=== PATIENT | male | born 1985 | race Caucasian/White ===

== ENCOUNTER → 2017-11-09 15:18 | Outpatient (POV) | payer OTHER, SELFPAY | PROVIDERS: Visit Provider Dermatology | DX: Z00.00 Encounter for general adult medical examination without abnormal findings (principal) ==

== ENCOUNTER 2020-06-08 09:04 | Emergency (ER) | payer OTHER, SELFPAY ==
--- NOTE | 2020-06-08 08:50 | XR_ITS ---
Exam: Lumbar spine five views. Indication: Low back pain Comparison: 12/01/2018 Findings: There is mild wedging of T12 anteriorly and minimal wedging of L1 which is unchanged. Degenerative disc disease is present at T11-T12 T12-L1, L2-L3, and L3-L4. Small posterior osteophyte noted along the inferior endplate of L3 and the inferior endplate of L4. There is normal alignment. No acute fracture or dislocation is evident. Impression: Degenerative changes of the lumbar spine and lower thoracic spine as described above. Dictated by: Stefano Carmen MD 09/14/2020 09:05 Stefano Carmen MD in [place] 09/14/2020 09:05
[2020-06-08 09:21] VITALS: BP 154/112; PULSE 118; RESP 14; TEMP 36.6; O2SAT 100; BMI 36.5
--- NOTE | 2020-06-08 09:25 | HMH.EDUTC ---
[facility] [place] Condition on Discharge: Fair <SmitaLincoln - Last Filed: 06/08/20 12:22> Condition on Discharge: Fair <Hiram Mancilla - Last Filed: 06/08/20 17:00> Clinical Impression: Lumbar degenerative disc disease, Protruded lumbar disc, Sciatica associated with disorder of lumbar spine Disposition: Home, Self-Care Instructions: DI for Sciatica Prescriptions: Ibuprofen [Ibuprofen 800mg Tablet] 800 mg PO TIDP PRN #20 tab PRN Reason: Moderate Pain Transmission Status: Received by Clinic [facility] Context Relevant methocarbamoL [Robaxin 750mg Tab] 1,500 mg PO TID 7 Days #42 tab Transmission Status: Received by Clinic Pharm[facility] Context Relevant Referrals: Perfecto Gupta MD [Primary Care Provider] - Yoel Ortiz [Referring] - Forms: Work/School Release Medical Decision Making - Medical Records Medical records reviewed: Yes: I reviewed the patient's medical records. - Michael Inquiry Pt receiving controlled substance: No - CT Data CT Scan: L-Spine Time Received: 12:[address] Reviewed: Yes: I have reviewed the patient's CT results, I have viewed the radiologist's interpretation - US Data US Images: Lower Extremity ED US Reviewed: Yes: I have reviewed the patient's US results, I discussed the US results w/the radiologist Preliminary Findings: Normal/NAD - Reevaluation(s) Time: 12:26 <SmitaLincoln - Last Filed: 06/08/20 12:22> Vital Signs: 06/08/20 09:21 06/08/20 09:44 06/08/20 10:01 Temperature 97.9 F 98.1 F Temperature Source Oral Oral Pulse Rate Pulse Rate [Right] 118 H 119 H 104 H Respiratory Rate 14 18 20 Blood Pressure Blood Pressure [Right Arm] 154/112 H 153/87 H 138/96 H Blood Pressure Mean [Right Arm] 126 109 110 Blood Pressure Source [Right Arm] Automatic Cuff Automatic Cuff Blood Pressure Position [Right Arm] Sitting 02 Sat by Pulse Oximetry 100 98 97 Oxygen Delivery Method Room Air 06/08/20 12:03 06/08/20 12:38 Temperature 98.3 F Temperature Source Oral Pulse Rate 87 Pulse Rate [Right] 78 Respiratory Rate 18 18 Blood Pressure 149/81 H Blood Pressure [Right Arm] 142/83 H Blood Pressure Mean [Right Arm] 102 Blood Pressure Source [Right Arm] Automatic Cuff Blood Pressure Position [Right Arm] Sitting 02 Sat by Pulse Oximetry 98 Oxygen Delivery Method Orders (Tests/Meds): ORDERS Category Date Time Status CT lumbar spine wo con Stat Cat Scan 06/08/20 09:57 Taken - CT Data Findings Narrative: FINDINGS: There is normal alignment. No fracture or dislocation is evident. T11-T12: Degenerative disc disease with small endplate osteophytes and osteophytes of the lamina on both sides with mild bilateral lateral recess narrowing. T12-L1: Mild chronic wedging of T12 with loss of height anteriorly of 30 percent. Degenerative disc disease T12-L1: L1-L2: Mild degenerative disc disease. L2-L3: Mild degenerative disc disease. L3-L4: Degenerative disc disease with a small broad-based central disc osteophyte complex along with ligamentum hypertrophy with resultant bilateral lateral recess narrowing and mild bilateral foraminal narrowing. L4-5: Mild degenerative disc disease with prominent broad based partially calcified bulging disc along with facet and ligamentum hypertrophy resulting in bilateral lateral recess narrowing and borderline narrowing of the canal. There is associated soft small broad-based right paracentral disc protrusion. L5-S1: Prominent bulging disc which is eccentric toward the left with associated mild facet hypertrophic change. The bulging disc does abut the anterior aspect of the left S1 nerve root. There is moderate to severe left-sided foraminal narrowing. 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 Incidental note is made of 1.4 cm lipoma within the left piriformis muscle. IMPRESSION: Abnormal CT of the lumbar spine wit
[2020-06-08 09:44] VITALS: BP 153/87; PULSE 119; RESP 18; TEMP 36.7; O2SAT 98; BMI 35.9
--- NOTE | 2020-06-08 09:57 | CT_ITS ---
Dictated by: Stefano Carmen MD 06/08/2020 20:29 Stefano Carmen MD in [place] 06/09/2020 09:46
--- NOTE | 2020-06-08 09:57 | CA_ITS ---
APPROVED REPORT Left Lower Extremity Venous Study for DVT. Tech Brazer Tester: Rose Alvarez RVT Indications Lower Extremity Pain: Left pain, swelling,lt foot numbness Risk Factors History of Smoking Vein Imaging CFV (L): compressive, spontaneous, phasic, augmentation FEM (L): compressive, spontaneous, phasic, augmentation POP (L): compressive, spontaneous, phasic, augmentation PTV (L): Compressible GSV (L): Compressible Peroneals (L):Compressible GAS (L): Compressible Findings Study suggests no evidence of DVT of the left lower extremity. Study suggests no evidence of SVT of the left lower extremity. Conclusion Study suggests no evidence of DVT of the left lower extremity. Study suggests no evidence of SVT of the left lower extremity. Critical Notification Physician Notified Date: 06/08/2020 Time: 10:44 Physician Name: Dr. Ordoñez Electronically signed by : Stefano Carmen MD 06/08/2020 15:30:23
[2020-06-08 10:01] VITALS: BP 138/96; PULSE 104; RESP 20; O2SAT 97
--- NOTE | 2020-06-08 10:23 | PC.NURSE ---
PT GETTING A DOPPLER NOW AT BEDSIDE
--- NOTE | 2020-06-08 11:48 | CT_ITS ---
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 All CT scans at the facility use one or more dose reduction, viz: automated exposure control, ma/kV adjustment per patient size (including targeted exams where dose is matched to indication, i.e. head), or iterative reconstruction technique. FINDINGS: There is normal alignment. No fracture or dislocation is evident. T11-T12: Degenerative disc disease with small endplate osteophytes and osteophytes of the lamina on both sides with mild bilateral lateral recess narrowing. T12-L1: Mild chronic wedging of T12 with loss of height anteriorly of 30 percent. Degenerative disc disease T12-L1: L1-L2: Mild degenerative disc disease. L2-L3: Mild degenerative disc disease. L3-L4: Degenerative disc disease with a small broad-based central disc osteophyte complex along with ligamentum hypertrophy with resultant bilateral lateral recess narrowing and mild bilateral foraminal narrowing. L4-5: Mild degenerative disc disease with prominent broad based partially calcified bulging disc along with facet and ligamentum hypertrophy resulting in bilateral lateral recess narrowing and borderline narrowing of the canal. There is associated soft small broad-based right paracentral disc protrusion. L5-S1: Prominent bulging disc which is eccentric toward the left with associated mild facet hypertrophic change. The bulging disc does abut the anterior aspect of the left S1 nerve root. There is moderate to severe left-sided foraminal narrowing. 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 Incidental note is made of 1.4 cm lipoma within the left piriformis muscle. IMPRESSION: Abnormal CT of the lumbar spine with multilevel lumbar spondylosis. Please see above for detailed description at each level. Dictated by: Stefano Carmen MD 06/08/2020 12:15 Stefano Carmen MD in [place] 06/08/2020 12:15
--- NOTE | 2020-06-08 11:48 | PC.NURSE ---
Per radiology staff pt previously xrays of lumbar spine during this visit when CT scan was ordered. Rad staff states they need another or for CT scan so they can process it on their list and do the CT. ER MD is aware. pt to CT at this time.
[2020-06-08 12:03] VITALS: BP 142/83; PULSE 78; RESP 18; O2SAT 98
[2020-06-08 12:38] VITALS: BP 149/81; PULSE 87; RESP 18; TEMP 36.8; O2SAT 98
== END 2020-06-08 12:37 | disposition home or self-care (01) ==
LOC: UTC 09:08 → ER 09:36
PROVIDERS: Emergency Provider Nurse Practitioner Family; PCP Family Medicine
DX: M54.16 Radiculopathy, lumbar region (principal); R20.2 Paresthesia of skin; I10 Essential (primary) hypertension; Z88.1 Allergy status to other antibiotic agents; Z87.891 Personal history of nicotine dependence; Z79.899 Other long term (current) drug therapy
CPT/HCPCS: 72131; 93971; 99282

== ENCOUNTER 2020-07-03 16:30 | Outpatient (RCR) | payer OTHER, SELFPAY ==
--- NOTE | 2020-06-17 15:00 | HMH.PTOPEV ---
PT Outpatient Evaluation Rehab PT Outpatient Evaluation Start: 06/17/20 14:04 Freq: Status: Active Protocol: Document 06/17/20 14:51 VERA (Rec: 06/17/20 15:00 PHOJIGAR [id number]) Electronically Signed By Mirza Zapien, PT 06/17/20 14:51 Outpatient Therapy Subjective History Subjective History Pt is 34 yowm who presents with c/o pain, numbness, and weakness in the L lower leg x ~ 2 wks. 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 Mild pain is also reported in the L post hip. No pain or discomfort in the low back and he has hx of this previously. He states, This just feel a lot different than when I have hurt my back before. Lumbar CT shows L3-S1 DDD with disc bulges. Chief Complaint Pain,Paresthesia,Weakness Symptom Type Ache,Sharp,Numbness,Tingling Symptoms Relieved By Rest/Positioning Symptoms Aggravated By Standing,Walking Prior Functional Limitations None Current Functional Limitations Driving,Sleeping,Standing, Recreation Activity,Walking Symptom Description Constant but Variable Level of pain today (0-10) 5 Pain scale - at its worst (0-10) 10 Lumbopelvic Eval Palapation tenderness left buttock tenderness Yes Range of Motion Lumbar Spine Active Flexion Range of 0-45 Motion (degrees) Lumbar Spine Active Extension Range of 0-25 Motion (degrees) Left Lumbar Spine Lateral Flexion Active 0-20 Range of Motion (degrees) Right Lumbar Spine Lateral Flexion 0-20 Active Range of Motion (degrees) Manual Muscle Test Left Knee Extension Strength Grade 4 Good Ankle Dorsiflexion Strength Grade 4 Good Altered Sensation LE Dermatome Level L5 Special Tests Forward Bending Test- Standing Negative Left,Negative Right Hip Scouring (Quadrant) Test Negative Left,Negative Right Hip Jass (LARRY) Test Negative Left,Negative Right Hip Piriformis Test Negative Right,Positive Left Sciatic Nerve Tension Test Negative Right,Positive Left Unilateral Straight Leg Raise (Lasegue) Negative Left,Negative Right Test Lumbar Long Gardner Distraction Test/Manual Negative Traction Outpatient Therapy Assessment Impairments Problems/Impairmments
== END 2020-07-03 16:35 | disposition home or self-care (01) ==
LOC: PT 16:30
PROVIDERS: PCP Family Medicine; Visit Provider Family Medicine
DX: M47.16 Other spondylosis with myelopathy, lumbar region (principal); M51.36 Other intervertebral disc degeneration, lumbar region
CPT/HCPCS: 97010; 97012; 97014; 97110; 97163; G0283

== ENCOUNTER → 2020-10-16 11:51 | Outpatient (CLI) | payer OTHER, SELFPAY ==
[2020-10-16 12:01] VITALS: BMI 24.3
== END ==
PROVIDERS: PCP Family Medicine; Visit Provider Nurse Practitioner
DX: M54.5 Low back pain (principal)

== ENCOUNTER → 2021-10-22 07:54 | Outpatient (POV) | payer OTHER, SELFPAY ==
[2021-10-22 08:24] VITALS: BP 147/98; PULSE 103; RESP 18; TEMP 36.9; O2SAT 100; BMI 36.6
--- NOTE | 2021-10-22 12:23 | HMH.PMCON ---
Assessment and Plan (1) Lumbar back pain Status: Acute Category: Medical Code(s): M54.50 - Low back pain, unspecified - Assessment and plan all Dx Assessment and Plan for all problems:: This patient is a very pleasant 36-year-old male that comes our clinic today for initial consultation regarding intermittent lumbar back pain. Patient states he has 2-3 episodes a year of sharp stabbing back pain that causes him to be down for 3 to 5 days. 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 He denies radicular pain when he does have an episode. However, today he is doing very well. He does not have pain. He does take naproxen as needed. Also, he does take Flexeril as needed. However, he states that Flexeril makes him sleepy. He can only take it at night. Patient is interested in being in our system if in fact he does have another episode. His MRI does show degenerative disc L4-5, L5-S1. Disc bulge L4-5, L5-S1. HPI - Data of Consult Consult date: 10/22/21 Requesting Physician: Jass Castro CRNA Primary Care Provider: Perfecto Gupta MD - Consult Narrative Reason for consult: Back pain History of present illness: Mr. Santizo is a 36 year old male CC: Jass Castro CRNA [facility] History Medical History: Reports:: Hypertension Denies:: Diabetes Mellitus Type 2 *Have you ever received a pneumonia vaccine?: No *Have you received a flu vaccine this season?: No Other Medical History: Reports: Arthritis Laterality Cases: Bilateral: Tonsillectomy Other Surgeries: Yes: Other Amputation: No Fractures: Yes - *Social History Smoking Status: Former smoker Tobacco Type: cigarettes # Packs/Day (cigarettes): 2 #Yrs smoked (if former smoker): 14 Alcohol Intake: never Alcohol Intake Frequency:: a few times a week Substance Use Type: denies use *Occupational Status:: other *Travel in the last 8 weeks: None Family Hx:: Hypertension, Coronary Artery Disease Meds Home Medications Medication Instructions Recorded Confirmed Type lisinopril 5 mg tablet 10 mg PO DAILY 06/19/17 10/22/21 History Ibuprofen [Ibuprofen 800mg 800 mg PO TIDP PRN #20 tab 06/08/20 10/22/21 Rx Tablet] Cyclobenzaprine HCl 10 mg PO TIDP 10/22/21 10/22/21 History [Cyclobenzaprine 10mg Tab*] Naproxen [Naproxen 500mg tab] 500 mg PO BID 10/22/21 10/22/21 History Oxycodone HCl/Acetaminophen 1 each PO Q6HP PRN 10/22/21 10/22/21 History [Oxycodone-Acetaminophen 5-325] Allergies Allergy/AdvReac Type Severity Reaction Status Date / Time amoxicillin [AMOXICILLIN] Allergy Mild Verified 11/04/20 11:25 Objective Vital signs: Temp Pulse Resp BP Pulse Ox 98.4 F 103 H 18 147/98 H 100 10/22/21 08:24 10/22/21 08:24 10/22/21 08:24 10/22/21 08:24 10/22/21 08:24 Opioid Risk Tool - CAGE-AID Questionaire Do you feel a need to increase medication use?: No Are you annoyed by criticism?: No Do you feel guilty for using substances?: No Do you use substances to calm or relieve a hangover?: No - Opioid Risk Tool-Male Family hx alcohol abuse: N Family hx illegal drugs: N Family hx rx drug abuse: N Personal hx alcohol abuse: N Personal hx illegal drugs: N Personal hx rx drug abuse: N Age: 16-45 Hx of sexual abuse: N Mental health issues-ADD,OCD,Bipolar, etc: N Hx of depression: N Male Risk Score: 1
== END ==
PROVIDERS: PCP Family Medicine; Visit Provider Nurse Anesthetist, Certified Registered
DX: M54.50 Low back pain, unspecified (principal)
CPT/HCPCS: 99202; G0463

== ENCOUNTER 2023-07-16 08:49 | Emergency (ER) | payer OTHER, SELFPAY ==
[2023-07-16 08:58] VITALS: BP 173/82; PULSE 131; RESP 20; TEMP 36.8; O2SAT 98; BMI 38.7
[2023-07-16 09:00] VITALS: BP 118/81; PULSE 126; O2SAT 97
--- NOTE | 2023-07-16 09:20 | ED_ITS ---
Discharge Plan Disposition Patient Disposition: Home, Self-Care Prescriptions Prescriptions: No Action lisinopril 5 mg tablet 10 mg PO DAILY ibuprofen 800 MG tablet 800 mg PO TIDP PRN (Reason: Moderate Pain) Qty: 20 0RF cyclobenzaprine 10 MG tablet 10 mg PO TIDP oxycodone-acetaminophen 1 EACH tablet 1 each PO Q6HP PRN (Reason: pain) naproxen 500 MG tablet 500 mg PO BID Referrals Follow up/Referrals: Ronen Shirley MD [Staff Physician] - See instructions Crow Mac MD [Primary Care Provider] - See instructions Activity Restrictions/Add. Instructions Additional Instructions/Restrictions: I would recommend that you follow-up with your primary care doctor to get a MRI of your thoracic and lumbar spine given the chronicity of your symptoms. Your symptoms today are consistent with sciatica and I also recommend that you take that MRI and those images to a spine surgeon. I recommended Dr. Laurent Ma, an orthopedic spine surgeon at [facility]. Please call make an appointment. Lastly if your chronic pain persist I recommend you follow-up with Dr. Shirley regarding management of that pain. Return with the symptoms that we discussed which include urine and bowel incontinence paralysis of your leg numbness between your legs high fevers or other concerns. Clinical Impressions Clinical Impression: Acute left-sided back pain with sciatica Instructions Patient Instructions: DI for Low Back Pain Discharge ED Provider: Ani Ibarra General Adult HPI General Chief complaint: Back Pain/Injury Stated complaint: left leg pain, no accident Time Seen by Provider: 07/16/23 09:10 Mode of Arrival: Ambulatory Source of Information: Patient Limitations: No Limitations Description of Symptoms (Recalled from ER Triage Doc. by RN): pt to ed c/o left sided back pain that radiates down his left leg. pt states the pain is sharp in nature and feels like a lucas pain. pt states he is unable to bear weight. pt denies any injury or accident. pt states the pain started this morning suddenly. History of Present Illness HPI narrative: Patient is a 37-year-old male with a history of chronic back pain evaluated many years ago by Dr. Ortiz with neurosurgery in [facility] diagnosed with L5- S1 herniated disks and sciatica presents today with worsening of his pain. States that it is radiating down the left aspect of his leg worse with any type of extension of the hip and flexion of the hip. Denies any urinary or bowel incontinence urinary retention saddle anesthesia motor weakness history of fever injection drug use or cancer. Related Data Home Medications Medication Instructions Recorded Confirmed lisinopril 5 mg tablet 10 mg PO DAILY Hypertension 06/19/17 10/22/21 cyclobenzaprine 10 mg tablet 10 mg PO TIDP . 10/22/21 10/22/21 naproxen 500 mg tablet 500 mg PO BID Pain 10/22/21 10/22/21 oxycodone-acetaminophen 5 mg-325 1 each PO Q6HP PRN pain 10/22/21 10/22/21 mg tablet Previous Rx's Medication Instructions Recorded ibuprofen 800 mg tablet 800 mg PO TIDP PRN Moderate Pain 06/08/20 #20 tabs Allergies Allergy/AdvReac Type Severity Reaction Status Date / Time amoxicillin [AMOXICILLIN] Allergy Mild Verified 11/04/20 11:25 [facility] Disclaimer: The information contained in this section may have been updated after the patient was seen, as this information can be updated by other users. Social History Smoking Status: Never smoker alcohol intake: never substance use type: denies use current occupational status: other Travel in the last 8 weeks: None ROS Obtained: Yes All systems reviewed & no additional complaints except as documented Physical Exam General General appearance: alert and in no apparent distress Respiratory Respiratory exam: Present normal lung sounds bilaterally Cardiovascular Cardiovascular exam: Present regular rate and normal rhythm Back Exam Back exam: Present straight leg raise (L) and other (Normal neurovascular motor exam distally); Absent tenderness (No midline pain) Neurological Exam Neurological exam: Present alert and oriented X3 Medical Decision Making Michael Inquiry Pt receiving controlled substance: No Vital Signs: 07/16/23 08:58 07/16/23 09:00 Temperature 98.3 F Temperature Source Oral Pulse Rate 126 H Pulse Rate [Left Radial] 131 H Respiratory Rate 20 Blood Pressure 118/81 Blood Pressure [Right Arm] 173/82 H Blood Pressure Mean [Right Arm] 112 02 Sat by Pulse Oximetry 98 97 Oxygen Delivery Method Room Air Orders (Tests/Meds): ED MEDICATIONS Discontinued Medications Generic Name Dose Route Start Last Admin Trade Name Freq PRN Reason Stop Dose Admin Dexamethasone Sodium Phosphate 10 mg 07/16/23 09:16 07/16/23 09:28 Dexamethasone 4mg/Ml 1ml Vial IV 07/16/23 09:17 10 mg ONCE ONE Administration Diazepam 5 mg 07/16/23 09:16 07/16/23 09:28 Diazepam 10mg/2ml Syringe IV 07/16/23 09:17 5 mg ONCE ONE Administration Ketorolac Tromethamine 15 mg 07/16/23 09:16 07/16/23 09:28 Ketorolac 30mg/Ml Vial IV 07/16/23 09:17 15 mg ONCE ONE Administration Lidocaine 1 each 07/16/23 09:16 07/16/23 09:28 Lidocaine 5% Transdermal Patch TP 07/16/23 09:17 1 each ONCE ONE Administration Medical Decision Narrative: 37-year-old male presenting today with significant worsening of his chronic sciatic pain. Does not have any red flags for any type of central or significant neurovascular compromise such as cauda equina syndrome. He is having significant spasming and having difficult time relaxing his leg in the middle of the spasms. For this reason we will give IV Valium in addition to Toradol dexamethasone and lidocaine patch. I will reassess shortly. Reassessment 11 AM patient feeling much better serial neurologic exams are normal. I discussed with him given the chronicity of his symptoms to follow-up with his primary care doctor to get an outpatient thoracic and lumbar spine MRI. To then take those images to a spine surgeon for further evaluation and management. I recommended Dr. Laurent Ma with [facility] orthopedic spine surgery. Also I gave him a referral to Dr. Shirley our pain specialist if his chronic pain needs further management. He will continue take his anti-inflammatory medications and muscle laxer's at home. He was discharged in improved stable condition. Critical Care Critical Care Time Critical Care Time: No
[2023-07-16] MEDS: diazePAM 10MG/2ML SYRINGE 5 MG IV (09:28)
[2023-07-16] MEDS: DEXAMETHASONE 4MG/ML 1ML VIAL 10 MG IV (09:28)
[2023-07-16] MEDS: LIDOCAINE 5% TRANSDERMAL PATCH 1 EACH TP (09:28)
[2023-07-16] MEDS: KETOROLAC 30MG/ML VIAL 15 MG IV (09:28)
--- NOTE | 2023-07-16 10:23 | PC.NURSE ---
pt reports much improvement in pain. currently sleeping in room. @ bedside
[2023-07-16] MEDS: ACETAMINOPHEN 500MG TAB 1000 MG PO (11:19)
[2023-07-16 11:27] VITALS: BP 118/86; PULSE 90; RESP 20; TEMP 36.8; O2SAT 97
== END 2023-07-16 11:28 | disposition home or self-care (01) ==
PROVIDERS: Emergency Provider Student in an Organized Health Care Education/Training Program; PCP Family Medicine
DX: M54.42 Lumbago with sciatica, left side (principal); M62.830 Muscle spasm of back
CPT/HCPCS: 96374; 96375; 99284

== ENCOUNTER 2023-07-16 12:00 | Emergency (ER) | payer OTHER, SELFPAY ==
[2023-07-16 12:03] VITALS: BP 123/71; PULSE 107; RESP 20; TEMP 36.8; O2SAT 97; BMI 38.7
--- NOTE | 2023-07-16 12:04 | HMH.EDGENADL ---
Discharge Plan Disposition Patient Disposition: Home, Self-Care Prescriptions Prescriptions: New gabapentin 300 mg capsule 300 mg PO .qhs PRN (Reason: Neuropathic pain) 14 Days Qty: 14 0RF No Action lisinopril 5 mg tablet 10 mg PO DAILY ibuprofen 800 MG tablet 800 mg PO TIDP PRN (Reason: Moderate Pain) Qty: 20 0RF cyclobenzaprine 10 MG tablet 10 mg PO TIDP oxycodone-acetaminophen 1 EACH tablet 1 each PO Q6HP PRN (Reason: pain) naproxen 500 MG tablet 500 mg PO BID Referrals Follow up/Referrals: Crow Mac MD [Primary Care Provider] - See instructions Activity Restrictions/Add. Instructions Additional Instructions/Restrictions: Please see previous discharge instructions. Clinical Impressions Clinical Impression: Sciatica associated with disorder of lumbar spine Instructions Patient Instructions: DI for Low Back Pain Discharge ED Provider: Ani Ibarra General Adult HPI General Chief complaint: Back Pain/Injury Stated complaint: left lower leg pain Time Seen by Provider: 07/16/23 12:03 History of Present Illness HPI narrative: Patient is a 37-year-old male with a recent diagnosis of sciatica please see my previous note he is a bounce back just a few hours ago we will discharge. He has recurrent worsening pain. He was given in the emergency department Toradol Tylenol lidocaine dexamethasone and IV Valium he had improvement was discharged with outpatient follow-up with pain medicine and spine surgery and he returns with worsening pain. Related Data Home Medications Medication Instructions Recorded Confirmed lisinopril 5 mg tablet 10 mg PO DAILY Hypertension 06/19/17 10/22/21 cyclobenzaprine 10 mg tablet 10 mg PO TIDP . 10/22/21 10/22/21 naproxen 500 mg tablet 500 mg PO BID Pain 10/22/21 10/22/21 oxycodone-acetaminophen 5 mg-325 1 each PO Q6HP PRN pain 10/22/21 10/22/21 mg tablet Previous Rx's Medication Instructions Recorded ibuprofen 800 mg tablet 800 mg PO TIDP PRN Moderate Pain 06/08/20 #20 tabs gabapentin 300 mg capsule 300 mg PO .qhs PRN Neuropathic 07/16/23 pain 14 days #14 caps Allergies Allergy/AdvReac Type Severity Reaction Status Date / Time amoxicillin [AMOXICILLIN] Allergy Mild Verified 11/04/20 11:25 PFSH PFSH Disclaimer: The information contained in this section may have been updated after the patient was seen, as this information can be updated by other users. Social History Smoking Status: Never smoker alcohol intake: never substance use type: denies use current occupational status: other Travel in the last 8 weeks: None ROS Obtained: Yes All systems reviewed & no additional complaints except as documented Physical Exam General General appearance: alert Respiratory Respiratory exam: Present normal lung sounds bilaterally Cardiovascular Cardiovascular exam: Present regular rate Extremities Exam Extremities exam: Present other (Normal neurovascular exam patient has significant pain radiating down his left lower leg unchanged) Neurological Exam Neurological exam: Present alert and oriented X3 Medical Decision Making Michael Inquiry Pt receiving controlled substance: No Vital Signs: 07/16/23 12:03 Temperature 98.2 F Temperature Source Oral Pulse Rate [Left Radial] 107 H Respiratory Rate 20 Blood Pressure [Right Arm] 123/71 Blood Pressure Mean [Right Arm] 88 02 Sat by Pulse Oximetry 97 Oxygen Delivery Method Room Air Orders (Tests/Meds): ED MEDICATIONS Discontinued Medications Generic Name Dose Route Start Last Admin Trade Name Angie PRN Reason Stop Dose Admin Morphine Sulfate 4 mg 07/16/23 12:03 Morphine 2mg/Ml Syringe IM 07/16/23 12:04 ONCE ONE Medical Decision Narrative: Please see previous note patient had extensive and aggressive medication for his sciatica pain. I did discuss with him that we would not be prescribing any controlled substances to be discharged with given the fact he is a bounce back I will give him some IM morphine and reassess he is aware that this is going to be short acting would not be curative and he understands the limitations and chronicity but this may pose in front of him. He already has had significant chronic pain associated with this and has been given referral to our pain medicine doctors and has Flexeril and anti-inflammatory medications at home as well. After extensive discussion he was given IM morphine also will give him a few weeks of nightly gabapentin he is aware this may need to be escalated if this is effective. He was discharged in stable condition. Serial exams were unremarkable and he is asymptomatic when lying at rest and majority of pain is with any type of hip flexion or leg raise. Critical Care Critical Care Time Critical Care Time: No
[2023-07-16 12:06] VITALS: BP 123/71; PULSE 102; O2SAT 96
[2023-07-16] MEDS: MORPHINE 2MG/ML SYRINGE 4 MG IM (12:25)
[2023-07-16 12:30] VITALS: BP 110/68; PULSE 103; O2SAT 97
[2023-07-16 12:45] VITALS: BP 110/68; PULSE 82; RESP 16; TEMP 36.8; O2SAT 97
== END 2023-07-16 12:56 | disposition home or self-care (01) ==
PROVIDERS: Emergency Provider Student in an Organized Health Care Education/Training Program; PCP Family Medicine
DX: M53.86 Other specified dorsopathies, lumbar region (principal)
CPT/HCPCS: 96372; 99283

== ENCOUNTER 2023-10-26 17:18 | Emergency (ER) | payer OTHER, SELFPAY ==
[2023-10-26 18:14] VITALS: BP 155/96; PULSE 99; RESP 18; TEMP 36.9; O2SAT 99; BMI 38.0
--- NOTE | 2023-10-26 18:30 | ED_ITS ---
Discharge Plan Disposition Patient Disposition: Home, Self-Care Condition: Good Prescriptions Prescriptions: New azithromycin [Zithromax Z-Jun] 250 mg tablet See Rx Instructions .ROUTE .COMPLEX 5 Days Qty: 6 0RF Rx Instructions: For 250 mg dose pack: take 500 mg today (day 1), then 250 mg for 4 days (days 2-5) cefdinir 300 mg capsule 300 mg PO BID Qty: 20 0RF guaifenesin [Mucinex] 600 mg tablet extended release 12hr 1,200 mg PO BID PRN (Reason: cough) Qty: 20 0RF albuterol sulfate [Proventil HFA] 90 mcg/actuation HFA aerosol inhaler 2 puff inhalation Q6H PRN (Reason: shortness of breath or wheezing) Qty: 8.5 0RF promethazine-DM 6.25-15 mg/5 mL syrup 5 ml PO Q6H PRN (Reason: cough) Qty: 118 0RF prednisone 20 mg tablet 20 mg PO BID 5 Days Qty: 10 0RF No Action lisinopril 5 mg tablet 10 mg PO DAILY ibuprofen 800 MG tablet 800 mg PO TIDP PRN (Reason: Moderate Pain) Qty: 20 0RF cyclobenzaprine 10 MG tablet 10 mg PO TIDP oxycodone-acetaminophen 1 EACH tablet 1 each PO Q6HP PRN (Reason: pain) naproxen 500 MG tablet 500 mg PO BID gabapentin 300 mg capsule 300 mg PO .qhs PRN (Reason: Neuropathic pain) 14 Days Qty: 14 0RF Referrals Follow up/Referrals: Crow Mac MD [Primary Care Provider] - See instructions Activity Restrictions/Add. Instructions Additional Instructions/Restrictions: * Start antibiotic today. Be sure to complete entire prescription even if feeling better * Monitor temp. Tylenol every 4 hours as needed and / or ibuprofen every 6 hours as needed ( As long as your primary care physician has told you that it ok to take both. For fever/aches/pains ER if no less than 101 despite Tylenol or Motrin * Humidifier/vaporizer or hot steamy shower * Inhaler every 4-6 hours as needed like we discussed. If unsure how to use it, ask pharmacist to demonstrate how. Should help open airways and improve cough, wheezing, and shortness of breath * Mucinex during the day for your cough and cough suppressant only at night. Be sure to drink lots of water. Insurance may not cover a prescriptions for mucinex. Might be cheaper to get 400mg tablets and take 2 tablet in the morning, mid-day and evening with lots of water. *Promethazine DM cough syrup will cause drowsiness. Use only at night. No driving, operating machinery or caring for small children after taking it *Start steroid tomorrow. Helps with inflammation therefore, cough and wheezing. Follow directions on the package. Reviewed side effects. Patient reports taking them before. Follow up IMMEDIATELY for new or worsening of symptoms OR no noticeable improvement over the next 48-72 hours. 911 immediately for any life threatening symptoms such as chest pain or difficulty breathing Clinical Impressions Clinical Impression: Strep throat, Bronchitis Instructions Patient Instructions: Acute Bronchitis, Cough, DI for Strep Throat Print Language Print Language: Lithuanian Discharge ED Provider: Patrica Kwon [facility] HPI General Stated complaint: cough,papa Mode of Arrival: Ambulatory Source of Information: Patient Limitations: No Limitations Time Seen by Provider: 10/26/23 18:20 Description of Symptoms (Recalled from Triage Doc. by RN): sore throat,swollen glands HEENT Symptoms (Recalled from RN notes): Yes Resp Symptoms (Recalled from RN notes): Yes Skin Symptoms (Recalled from RN notes): No MS Symptoms (Recalled from RN notes): No Functional Status (Recalled from RN notes): na History of Present Illness Provider Complaint: Patient states that he has been having sore scratchy throat, swollen glands, productive cough, and wheezing at times States that he hasnt felt well in a couple of weeks but has got worse over the last few days so he came in to get checked Related Data Home Medications ?Medication ?Instructions ?Recorded ?Confirmed lisinopril 5 mg tablet 10 mg PO DAILY Hypertension 06/19/17 10/22/21 cyclobenzaprine 10 mg tablet 10 mg PO TIDP . 10/22/21 10/22/21 naproxen 500 mg tablet 500 mg PO BID Pain 10/22/21 10/22/21 oxycodone-acetaminophen 5 mg-325 1 each PO Q6HP PRN pain 10/22/21 10/22/21 mg tablet Previous Rx's ?Medication ?Instructions ?Recorded ibuprofen 800 mg tablet 800 mg PO TIDP PRN Moderate Pain 06/08/20 #20 tabs gabapentin 300 mg capsule 300 mg PO .qhs PRN Neuropathic 07/16/23 pain 14 days #14 caps albuterol sulfate 90 mcg/actuation 2 puff inhalation Q6H PRN 10/26/23 aerosol inhaler (Proventil HFA) shortness of breath or wheezing #8.5 grams azithromycin 250 mg tablet See Rx Instructions PO .COMPLEX 5 10/26/23 (Zithromax Z-Jun) days #6 tabs cefdinir 300 mg capsule 300 mg PO BID #20 caps 10/26/23 guaifenesin 600 mg tablet, 1,200 mg (2 x 600 mg) PO BID PRN 10/26/23 extended release 12 hr (Mucinex) cough #20 tabs prednisone 20 mg tablet 20 mg PO BID 5 days #10 tabs 10/26/23 promethazine-DM 6.25 mg-15 mg/5 mL 5 ml PO Q6H PRN cough #118 mL 10/26/23 oral syrup Allergies Allergy/AdvReac Type Severity Reaction Status Date / Time amoxicillin [AMOXICILLIN] Allergy Mild Verified 11/04/20 11:25 Worker's Comp Is this a Worker's Comp case?: No Is this an [facility] Worker's Comp?: No Is this a [place] Worker's Comp?: No [facility] Disclaimer: The information contained in this section may have been updated after the patient was seen, as this information can be updated by other users. Social History Smoking Status: Never smoker alcohol intake: never substance use type: denies use current occupational status: other Travel in the last 8 weeks: None ROS Obtained: Yes All systems reviewed & no additional complaints except as documented and Yes Systems reviewed as appropriate & no additional complaints except as documented Constitutional Constitutional: Reports system reviewed and no additional complaints, except as documented, Reports as per HPI and Reports headache(s) ENT Ears, Nose, Mouth, and Throat: Reports system reviewed and no additional complaints, except as documented, Reports as per HPI, Reports headache(s), Reports sinus pain, Reports sinus pressure and Reports sore throat Cardiovascular Cardiovascular: Reports system reviewed and no additional complaints, except as documented and Reports as per HPI Respiratory Respiratory: Reports system reviewed and no additional complaints, except as documented, Reports as per HPI, Denies shortness of breath, Reports chest congestion, Reports cough and Reports wheezing (on and off at times) Gastrointestinal Gastrointestingal: Reports system reviewed and no additional complaints, except as documented and as per HPI Neurologic Neurologic: Reports headache(s) Allergic/Immunologic Allergic/Immunologic: Reports wheezing (on and off at times) Physical Exam General General appearance: alert and in no apparent distress Expanded ENT Exam Nose exam: Present sinus tenderness Throat exam: Present tonsillar erythema and other (PND noted) Respiratory Respiratory exam: Present normal lung sounds bilaterally, wheezes and other (mildly decreased lower lobes); Absent respiratory distress Cardiovascular Cardiovascular exam: Present regular rate, normal rhythm and normal heart sounds Neurological Exam Neurological exam: Present alert, oriented X3 and normal gait Medical Decision Making Michael Inquiry Pt receiving controlled substance: No Michael was queried for this patient: No Vital Signs: 10/26/23 18:14 Temperature 98.5 F Temperature Source Oral Pulse Rate [Left] 99 H Respiratory Rate 18 Blood Pressure [Left Arm] 155/96 H Blood Pressure Mean [Left Arm] 115 02 Sat by Pulse Oximetry 99 Lab Data Lab results reviewed: Yes I reviewed the patient's lab results. Medical Decision Narrative: Discussed CXR, Patient states that he is allergic to Amoxicillin but has taken Cefdnir in the past wihtout reaction or complications
[2023-10-26] MEDS: METHYLPREDNISOLONE SOD SUCC 125MG VIAL 125 MG IM (18:38)
[2023-10-26 18:52] LABS: UTC Strep Screen (Rapid) Positive (Negative)
[2023-10-26 18:56] VITALS: BP 155/96; PULSE 99; RESP 20; TEMP 36.9; O2SAT 99
== END 2023-10-26 19:01 | disposition home or self-care (01) ==
PROVIDERS: Emergency Provider Nurse Practitioner; PCP Family Medicine
DX: J02.0 Streptococcal pharyngitis (principal); J20.9 Acute bronchitis, unspecified; R07.0 Pain in throat; R05.9 Cough, unspecified; R06.2 Wheezing
CPT/HCPCS: 87880; 96372; 99204; 99212; G0463; J2919

== ENCOUNTER → 2024-12-16 07:52 | Outpatient (CLI) | payer OTHER, SELFPAY ==
--- OUTSIDE RECORDS SUMMARY | 2024-12-16 07:55 | XMS_ITS | Clinical Summary ---
Author Organization [employer] ([place], [place], [place], [place]) Address [address] [place] [address] Care Team Providers Care Quick Mixer Operator Name Role Phone [facility], Provider Not In The System MD Primary Care Provider Unavailable Allergies No known active allergies Medications lisinopriL (PRINIVIL,ZESTRI L) 10 MG tablet Take 1 tablet (10 mg total) by mouth daily. Active Active Problems Problem Noted Date Diagnosed Date Hypertension 07/19/2023 BMI 38.0-38.9,adult 07/19/2023 Disc disorder 07/19/2023 Neck pain 07/18/2023 Back pain at L4-L5 level 07/18/2023 Social History Tobacco Use Types Packs/Day Years Used Date Smoking Tobacco: Former Cigarettes Q uit: 2013 Smokeless Tobacco: Never Tobacco Cessation:Counseling Given: Not Answered Alcohol Use Standard Drinks/Week Comments Never 0 (1 standard drink = 0.6 oz pur e alcohol) Utilities Answer Date Recorded In the past 12 months, has t he electric, gas, oil, or water company threatened to shut off services in your home? No 07/18/2023 Food Insecurity Answer Date Recorded Within the past 12 months, y ou worried that your food would run out before you got money to buy more. Never true 07/18/2023 Within the past 12 months, t he food you bought just didn't last and you didn't have money to get more. Never true 07/18/2023 Transportation Needs Answer Date Record ed In the past 12 months, has l ack of reliable transportation kept you from medical appointments, meetings, work or from getting things needed for daily living? No 07/18/2023 Financial Resource Strain Answer Date R ecorded How hard is it for you to pa y for the very basics like food, housing, medical care, and heating? Would you say it is: Not hard at all 07/18/2023 Employment Answer Date Recorded Do you want help finding or keeping work or a job? I do not need or want help 07/18/2023 Family and Community Support Answer Lucas e Recorded If for any reason you need h elp with day-to-day activities such as bathing, preparing meals, shopping, managing finances, etc., do you get the help you need? I don't need any help 07/18/2023 Feeling Lonely or Isolated 0 07/17 Educational Attainment Answer Date Lorenzo rded Do you speak a language other than [place] at [facility]? No 07/18/2023 Do you want help with school or training? For example, starting or completing job training or getting a high school diploma, GED or equivalent. No 07/18/2023 Physical Activity Answer Date Recorded Number of minutes of exercise per week 0 07/18/2023 Substance Use Answer Date Recorded How many times in the past y ear have you used prescription drugs for non-medical reasons? Never 07/18/2023 How many times in the past year have you used [place] legal drugs? 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 Not on file Not on file Last Filed Vital Signs Vital Sign Reading Time Taken Comments Blood Pressure 132/65 07/20/2023 11:25 AM EDT Pulse 100 07/20/2023 11:25 AM EDT Temperature 36.5 C (97.7 F) 07/20/2023 8:35 AM EDT Respiratory Rate 18 07/20/2023 8:35 AM EDT Oxygen Saturation 95% 07/20/2023 8:35 AM EDT Inhaled Oxygen Concentration - - Weight 122.5 kg (270 lb) 07/18/2023 3:00 PM EDT Height 177.8 cm (5' 10 ) 07/18/2023 3:00 PM EDT Body Mass Index 38.74 07/18/2023 3:00 PM EDT Plan of Treatment Health Maintenance Due Date Last Done Comments Depression Screening (12+) 1996 HIV Screening 10/09/1999 Hepatitis C Screening 2002 DTAP/TDAP/TD VACCINES (7 - Td or Tdap) 08/25/2009 08/26/1999, 10/17/1989, 09/29/1986, Additional history exists Lipid Panel 10/09/2019 Tobacco Cessation Counseling and Screening (12+) 07/18/2024 07/19/2023 COVID-19 VACCINE (2 - 2024- season) 2024 03/25/2021 Influenza Vaccine (#1) 2024 Pneumococcal Vaccine: 0-49 Years Aged Out No longer eligible based on patient's age to complete this topic Insurance [address] [place], [place] [address] CHOICE PLUS Advance Directives For more information, please contact: [phone] * Full Code (Latest Code Status on File) Date Activated Date Inactivated Comments 07/18/2023 2:47 PM 07/20/2023 2:03 PM Care Teams Quick Mixer Operator Relationship Specialty Start Date End Date [facility], Provider Not In The System, [place] [address] PCP - General 07/18/23
--- OUTSIDE RECORDS SUMMARY | 2024-12-16 07:55 | XMS_ITS | Clinical Summary ---
Author Organization [facility] Address [address] [place] [address] Care Team Providers Care Supreme Court Judge Name Role Phone Perfecto Gupta MD Primary Care Provider + Allergies No known active allergies Medications cyclobenzaprine (FLEXERIL) 10 MG tabletIndication s:Strain of lumbar region, initial encounter Take 1 tablet by mouth 3 (Three) Times a Day. 30 tablet 3 2 Active Additional Information Patient not taking.Reported on 09/27/2024 naproxen (NAPROSYN) 500 MG tabletIndication s:Strain of lumbar region, initial encounter Take 1 tablet by mouth 2 (Two) Times a Day With Meals. 60 tablet 3 2 Active sildenafil (VIAGRA) 25 MG tablet Take 1 tablet by mouth Daily As Needed for Erectile Dysfunction. 30 tablet 5 2 Active Additional Information Patient not taking.Reported on 09/27/2024 predniSONE (DELTASONE) 20 MG tablet 60 mg p.o. daily for 3 days then 40 mg p.o. daily for 3 days then 20 mg p.o. daily for 3 days 18 tablet 4 Active gabapentin (NEURONTIN) 400 MG capsule TAKE ONE CAPSULE BY MOUTH TWICE DAILY MAY CAUSE DROWSINESS Active cyclobenzaprine (FLEXERIL) 5 MG tablet TAKE ONE TABLET BY MOUTH THREE TIMES DAILY NEEDED FOR MUSCLE SPASMS MAY CAUSE DROWSINESS Active lisinopril (PRINIVIL,ZESTRI L) 10 MG tabletIndication s:Primary hypertension Take 1 tablet by mouth Daily. 30 tablet 5 5 Active Active Problems Problem Noted Date Diagnosed Date Class 3 severe obesity due t o excess calories without serious comorbidity with body mass index (BMI) of 40.0 to 44.9 in adult 08/18/2021 Encounters Date Type Department Care Team Description 09/27/2024 9:45 AM EDT Office Visit [facility] [address] [place] [id number] Perfecto Gupta MD Hypersomnolence (Primary Dx); Unrefreshed by sleep; Loud snoring; Primary hypertension; Class 3 severe obesity due to excess calories without serious comorbidity with body mass index (BMI) of 40.0 to 44.9 in adult 09/27/2024 Travel from Last 3 Months Immunizations Immunization Administration Dates Next Due COVID-19 (PFIZER) Purple Cap Monovalent 03/25/2021 DTaP, Unspecified 10/17/1989, 7,05/04/1985,1985,01/04/1985 MMR 10/31/1995,04/01/1986 Polio, Unspecified 10/17/1989, 6,02/03/1985,1984 Td (TDVAX) 08/26/1999 Social History Tobacco Use Types Packs/Day Years Used Date Smoking Tobacco: Former Cigarettes Q uit: 2014 Smokeless Tobacco: Never Alcohol Use Standard Drinks/Week Comments Yes 0 (1 standard drink = 0.6 oz pur e alcohol) PHQ-2 Answer Date Recorded Retired PHQ-9: Brief Depression Severity Measure Score 0 08/18/2021 Abuse Screen Answer Date Recorded Feels Unsafe at Home or Work/School no 07/17/2023 Feels Threatened by Someone no 07/04 Does Anyone Try to Keep You From Having Contact with Others or Doing Things Outside Your Home? no 07/17/2023 Physical Signs of Abuse Present no 07/17/2023 Sex and Gender Information Value Date Recorded Sex Assigned at Not on file Legal Sex Male 3:24 PM EDT Gender Identity Not on file Sexual Orientation Not on file Last Filed Vital Signs Vital Sign Reading Time Taken Comments Blood Pressure 140/82 09/27/2024 9:31 AM EDT Pulse 95 09/27/2024 9:31 AM EDT Temperature 36.7 C (98.1 F) 09/27/2024 9:31 AM EDT Respiratory Rate 20 09/27/2024 9:31 AM EDT Oxygen Saturation 99% 09/27/2024 9:31 AM EDT Inhaled Oxygen Concentration - - Weight 129 kg (284 lb 3.2 oz) 09/27/2024 9:31 AM EDT Height 177.8 cm (5' 10 ) 09/27/2024 9:31 AM EDT Body Mass Index 40.78 09/27/2024 9:31 AM EDT Plan of Treatment Health Maintenance Due Date Last Done Comments ANNUAL PHYSICAL 08/18/2021 HEPATITIS C SCREENING 08/18/2021 INFLUENZA VACCINE 10/04/2024 TDAP/TD VACCINES (3 - Tdap) 07/17/203407/04, 08/26/1999 Pneumococcal Vaccine 0-49 Aged Out No longer eligible based on patient's age [place] [address] Relationship Specialty Start Date End Date Perfecto Gupta MD [address] [place] [address] [place] [address] PCP - General Family Medicine 08/18/21
--- OUTSIDE RECORDS SUMMARY | 2024-12-16 07:55 | XMS_ITS | Data Portability ---
Author Organization [facility] Address [address] [facility] [address] [place] [address] Assessment Encounter Date Assessment Date Assessment LastModified by Organization Details LastModified Time 07/18/2023 07/18/2023 ASSESSMENT: Mr. Ayoub is a 37-year-old man who presents the office today accompanied by his , Pooja, for evaluation of severe left lower extremity symptoms that have been so severe since Monday they have required him to take 2 trips to the emergency department. He reports previously he has had issues with low back pain and he would work with his chiropractor as needed to manage those. However around a month ago he started having tingling into his left foot that felt like his foot was asleep and this radiated down from his knee. However Monday he developed severe left posterior hip/buttock pain that radiates down the posterior left leg that feels like a ripping pain down to his knee with tingling from his knee into his foot where his foot still feels like it is asleep and like there is something balled up under his toes. He was evaluated at [facility] on Monday and again at [facility] yesterday where he has been given gabapentin and steroids as well as muscle relaxers. This pain is worse if he is sitting or walking and he can get some degree of improvement only with laying down in certain positions. It is gotten so severe with sitting down that he had difficulty even having a bowel movement. He denies any bowel or bladder control loss. Previously he saw Dr. Ortiz in January 2016. IMAGING: No new imaging available for review Nurse practitioner visit PLAN: Lumbar MRI without contrast stat Standing lumbar AP, lateral, flexion, extension x-rays Mr. Ayoub is going to get an MRI done stat of his low back to evaluate for any neural impingement that could be causing his severe left lower extremity symptoms, weakness in his left lower extremity, and absent Achilles reflex. The front office medical assistant was able to get him into the clinic MRI as soon as he can get there from our office. We will also get standing lumbar x-rays with flexion-extension to evaluate for any instability. I will have Dr. Ortiz review his MRI as soon as the imaging is available to determine if he would be a candidate for injections or surgical interventions. He and his verbalized understanding of these instructions and are agreeable to this plan. They have no further questions or concerns at this time. They are satisfied with this plan of care. Mr. Ayoub's MRI was available for review through our PACS after 1:00 this [address] We contacted Dr. Ortiz to discuss this case with him given the severe amount of pain that Mr. Ayoub was having as well as the findings on his MRI report. His MRI reveals a significant left disc herniation at L5-S1 with left lateral recess and foraminal stenosis that is severe at this level. Subha Curran MA, contacted Mr. Ayoub and his and discussed that he should go to admitting at [facility] at this time to be admitted. They verbalized understanding of these instructions and will return to [facility] to be admitted. They were very appreciative of the help to get this imaging workup completed and Mr. Ayoub in for relief of his severe symptoms. [email or web address] Not available 07/18/2023 15:48:27 08/14/2023 08/14/2023 Mr. Ayoub is progressing nicely after left L5-S1 discectomy. We discussed similar loosening of his restrictions to lifting 25 pounds and doing some bending and twisting at this time. He may return to work 3 months postop. He is comfortable with this plan. He understands he can call at anytime with questions or concerns. [email or web address] Not available 08/14/2023 15:31:26 09/19/2024 09/19/2024 ASSESSMENT: Mr. Ayoub is a 38-year-old man who returns to the office after last being seen 08/14/2023 at that point in follow-up of his left L5-S1 hemilaminectomy, mesial facetectomy, foraminotomy, and discectomy completed by Dr. Ortiz on 07/19/2023 in a somewhat urgent fashion. He returns today reporting left leg pain that has been present for the last month with no known cause. He is accompanied by his , Pooja. He reports since having surgery in July of last year, he had been doing quite well other than some occasional back pain and that he reports his left ankle rolls even if he is walking on textured flat ground. He reports at times that is very painful when it occurs. He is not reporting a significant amount of back pain or even buttock/posterior hip pain. His pain starts at approximately mid thigh and radiates down the posterior left leg behind his knee and down the lateral calf into his ankle. He does feel the pain stops at his ankle, but his foot still feels tingling and like a sock is balled up under the toes . He reports this pain is not as severe as it was prior to surgery as at that point it was all the way up into his buttock and posterior hip, but he does report it feels similar to the pain he had prior to surgery. He has seen a chiropractor for a couple visits, but that was more for his upper back. He has not done recent physical therapy or pain management injections. These pains are usually worse with walking and lying down and sometimes are better with sitting. He has been taking muscle relaxers but found them too sedating so he had to stop. He has tried naproxen and has been restarted on gabapentin by his PCP. He is also currently completing a course of steroids. He reports his balance and dexterity are okay other than when his ankle rolls. He denies any bowel or bladder control issues. IMAGING: No new imaging available for review Nurse practitioner visit PLAN: Lumbar AP, lateral, flexion, extension x-rays Lumbar MRI with and without without contrast Follow-up with Dr. Ortiz Mr. Ayoub is going to move forward with updated imaging of his lumbar spine to include x-rays with flexion-extension to evaluate for any instability. We will also request an updated lumbar MRI with and without contrast to evaluate for any neural impingement that could be causing the symptoms that he is experiencing. He will follow-up with Dr. Ortiz to review these results to determine if he would be a candidate for injections or further surgical interventions. They are encouraged to contact our office after his MRI is complete to review those results and determine the next step moving forward. They verbalized understanding of these instructions and are agreeable to this plan. They have no further questions or concerns at this time. They are satisfied with this plan of care. [email or web address] Not available 09/19/2024 14:57:11 11/06/2024 11/06/2024 This is a 39-year-old gentleman seen today for evaluation of low back and intermittent left leg pain. This can involve the left lateral ankle and calf. He has a sensation of a soft balled up under the toes. Pain is improved since undergoing left L5-S1 hemilaminectomy 07/19/[address] Ortiz but is still bothersome. He seems to have flares of his low back giving out on him. This typically responds to IM Toradol and steroid. No radicular symptoms currently. Pain is well-controlled. PMH: PSHx: 1. MRI lumbar spine 10/09/2024 demonstrates previous left hemilaminectomy at L5-S1. At L3-4 and L4-5 there are broad-based disc protrusions centrally with moderate canal stenosis. Slight left paracentral L5-S1 disc bulge with S1 nerve root contact. The above image findings were discussed with the patient. The patient has undergone no recent injection therapy. Gabapentin, Flexeril, naproxen, prednisone Presentation is consistent with lumbar radiculopathy and postlaminectomy syndrome. I recommend: 1. We discussed the option of CEFERINO for pain flares. Would recommend L3-4 [place] CEFERINO in the situation 2. We discussed home exercises to work on disc decompression to reduce frequency of flares. This focus should include multifidus strengthening and core stabilization with stretching. 3. Trial diclofenac in place of other NSAIDs 4. Follow-up in 3 months External records were reviewed and discussed as above, including imaging, clinical notes, and relevant labs. [email or web address] Not available 11/06/2024 15:54:59 Plan of Treatment Reminders Order Date Submit Date Provider Last Modified By Organization Details Last Modified Time Details Appointments RECHECK 2024 09:30A M MARIAELENA WRIGHT PA-C Not available Not available Not available Lab None recorded. Referral None recorded. Procedures None recorded. Surgeries None recorded. Imaging None recorded. Medication Orders diclofena c sodium 75 mg tablet,de layed release 2024 025 [facility], [address] [facility] [address] [place], [id number], 11/07/2024 15:30:07 Patient TargetsNo targets recorded. Patient Instructions Encounter Date Encounter Id Patient Instructions Last Modified By Organization Details Last Modified Time 09/19/2024 [id number] CATEGORY DESCRIPTION MINUTES Prepare to see the patient (e.g. review of tests) 5 Obtain/review separately obtained history 5 Perform medically appropriate exam/evaluation 5 Order medications, tests, or procedures 5 Chief Procurement Officer/educate the patient/family/car egiver 5 Refer/communicate w/other healthcare professionals Document clinical information into health record 5 Non-billable independent interp of results Non-billable care coordination TOTAL TIME 30 [id number] (15-29) [id number] (30-44) [id number] (45-59) [id number] (60-74) [id number] (10-19) [id number] (20-29) [id number] (30-39) [id number] (40-54) [email or web address] Not available 09/19/2024 14:57:25 Reason for Referral None Reported. Results Created Date Observation Date Name Description Value Unit Range Abnormal Flag Note LastModifiedBy Organization Detail LastModifiedTime 07/18/19 24 07/18/2023 MRI, lumba r spine , w/o contr ast [address] [address] Patiheri t Name: HIMA stokes : [birth year] Yobani t Orderi ng Provid er: SAAD LEI T EXAM DATE: 2023 EXAM: MR LUMBAR W/O CONTRA ST HISTOR Y: 37-yea r-old male with low back pain radiat ing to the left leg. COMPAR JESUS: Radiog raph of the same date FINDIN GS: There is mild web designer developer ior listhe sis of L3 on L4 and L4 on L5. There is no fractu re. There is minima l anteri or margin al osteop hytic spurri ng. No pathol ogic lesion is identi fied in the lumbar spine. There are multip le Schmor l's nodes throug hout the lumbar spine. The conus medull gaby is normal in appear ance at the T12-L1 level. T11-T1 2: There is a centra l disc protru alonzo or extrus ion. There is mild centra l canal narrow ing. There is no neural forami nal narrow ing. T12-L1 : This interv ertebr al disc is normal in appear ance. L1-L2: There is mild endpla te spurri ng. There is no centra l canal stenos is. There is no neural forami nal stenos is. L2-L3: There is mild endpla te spurri ng and a minima l disc bulge. There is no centra l canal stenos is. There is no neural forami nal stenos is. L3-L4: There is a broad- based centra l disc protru alonzo and mild endpla te spurri ng. There is modera te centra l canal stenos is. There is mild bilate ral neural forami nal stenos is. L4-L5: There is a broad- based disc protru alonzo and endpla te spurri ng extend ing into the neural forami na. There is mild facet arthro marek. There is mild centra l canal stenos is. There is severe left and modera te right neural forami nal stenos is. L5-S1: There is a large disc extrus ion extend ing into the left latera l recess and left neural forame n. There is mild endpla te spurri ng, a mild disc bulge and mild facet arthro marek. There is stenos is of the left latera l recess . There is no centra l canal stenos is. There is severe left and modera te right neural forami nal stenos is. The parasp inous muscul ature is symmet gulshan and normal in signal . IMPRES ALONZO: 1. There is a large disc extrus ion in the left latera l recess and left neural forame n at L5-S1. There is stenos is of the left latera l recess at this level with severe left and modera te right neural forami nal narrow ing. 2. There is a broad- based disc protru alonzo at L4-L5 with mild centra l canal narrow ing, and severe left and modera te right neural forami nal narrow ing. 3. There is a broad- based disc protru alonzo at L3-L4 with modera te centra l canal narrow ing and mild bilate ral neural forami nal narrow ing. Interp reted By: Sofi ervin MD [facility] onical ly Signed By: Sofi ervin MD on 1:[email or web address] [place] [address] Radiology [facility] [address] [place] [address], [phone], 07/19/2023 09:26:43 07/18/19 24 07/18/2023 XR, lumbo sacra l spine , 4 or more view Replaced By [facility] [place] [address] Yobani stokes Name: HIMA stokes : [birth year] Yobani stokes Orderi ng Provid er: SAAD Stokes EXAM DATE: 2023 EXAM: XR LUMBAR SPINE AP/LAT /FLEX/ EXT HISTOR Y: Severe low back pain COMPAR JESUS: None. FINDIN GS: There is mild levocu rvatur e of the lumbar spine. There is minima l web designer developer ior listhe sis of L3 on L4. This does not change with flexio n or extens ion. There is mild anteri or margin al spurri ng. There is mild facet arthro marek. No fractu re is seen. IMPRES ALONZO: 1. There are mild degene rative change s in the lumbar spine. Interp reted By: Sofi ervin MD [facility] onical ly Signed By: Sofi ervin MD on 1:42 PM [email or web address] [facility] [address] [place], [phone], 07/19/2023 09:26:42 09/20/19 25 09/19/2024 XR, lumbo sacra l spine , 4 or more view [facility] [address] [facility] [place] [address] Patiheri t Name: HIMA stokes : [birth year] Yobani stokes Orderi ng Provid er: SAAD Stokes EXAM DATE: 2024 EXAM: XR LUMBAR SPINE AP/LAT /FLEX/ EXT CLINIC AL INFORM ATION: Back pain. IMAGES PROVID ED: AP, latera l and coned- down views of the lumbar spine with additi onal latera l views in flexio n and extens ion. COMPAR JESUS: FINDIN GS: Verteb ral body height s are normal . There is some narrow ing of severa l disc spaces and there is mild diffus e spurri ng presen t. No abnorm ality of alignm ent is seen. No instab ility is seen on flexio n or extens ion. No radiog raphic eviden ce of injury is noted. IMPRES ALONZO: Mild diffus e DDD. No instab ility. Interp reted By: Victoriano Messina MD Electr onical ly Signed By: Victoriano Messina MD on 2:58 PM [email or web address] [facility] [address] [place], [phone], 10/22/2024 12:09:36 10/10/19 25 10/09/2024 MRI, lumba r spine , w/wo contr ast [facility] [address] [facility] [place], [place] [address] [phone] Patiheri t Name: HIMA stokes : [birth year] Yobani stokes Orderi ng Provid er: SAAD LEI T EXAM DATE: 2024 EXAM: MR LUMBAR SPINE W/WO CONTRA ST HISTOR Y: 39-yea r-old male with chroni c low back pain radiat ing to the left. COMPAR JESUS: MRI dated 024 The patiheri t did not requir e sedati on for this exam. A baseli ne serum creati nine with eGFR was obtain ed prior to inject ion of contra st medium due to the patien ts risk factor s for ALFREDA. Calcul ated eGFR at time of exam was GFR>90 FINDIN GS: There is mild web designer developer ior listhe sis of L3 on L4 and L4 on L5. There is no fractu re. There is minima l to mild anteri or margin al osteop hytic spurri ng. No pathol ogic lesion is identi fied in the lumbar spine. There are multip le Schmor l's nodes throug hout the lumbar spine. There are type II Modic change s at L4-L5 and L5-S1. The conus medull gaby is normal in appear ance at the T12-L1 level. T11-T1 2: There is a centra l disc extrus ion extend ing superi enid. There is mild centra l canal narrow ing. There is no neural forami nal narrow ing. T12-L1 : This interv ertebr al disc is normal in appear ance. L1-L2: There is mild endpla te spurri ng and a minima l disc bulge. There is no centra l canal stenos is. There is no neural forami nal stenos is. L2-L3: There is mild endpla te spurri ng and a minima l disc bulge. There is no centra l canal stenos is. There is no neural forami nal stenos is. L3-L4: There is a broad- based centra l disc protru alonzo and mild endpla te spurri ng. There is modera te centra l canal stenos is. There is mild bilate ral neural forami nal stenos is. L4-L5: There is a broad- based disc protru alonzo and endpla te spurri ng extend ing into the neural forami na. There is mild facet arthro marek. There is mild centra l canal stenos is. There is severe left and modera te/sev ere right neural forami nal stenos is. L5-S1: There is a possib le left partia l luis ctomy. There is diffus e promin ence of the interv ertebr al disc with focal extens ion in the left latera l recess . There is enhanc ement of the disc in the left latera l recess consis tent with postsu rgical granul ation tissue . There is associ ated endpla te spurri ng. There is stenos is of the left latera l recess . There is no centra l canal stenos is. There is severe left and modera te/sev ere right neural forami nal stenos is. After intrav enous admini strati on of [address] ([facility] [address]- [id number] 2), there is no abnorm al enhanc ement in the lumbar spine. The parasp inous muscul ature is symmet gulshan and normal in signal . IMPRES ALONZO: 1. There is a prior partia l discec luis at L5-S1. There is enhanc ement of the disc in the left latera l recess at L5-S1 consis tent with postsu rgical granul ation tissue , and the overal l shape of the disc is unchan ged. No recurr ent disc protru alonzo is identi fied. There is stenos is of the left latera l recess at this level with severe left and modera te/sev ere right neural forami nal narrow ing. 2. There is a broad- based disc protru alonzo at L4-L5 with mild centra l canal narrow ing, and severe left and modera te/sev ere right neural forami nal narrow ing. 3. There is a broad- based disc protru alonzo at L3-L4 with modera te centra l canal narrow ing and mild bilate ral neural forami nal narrow ing. Interp reted By: Sofi ervin MD Electr onical ly Signed By: Sofi ervin MD on 10/10/19 8:54 AM [email or web address] [facility] [address], [phone], 10/22/2024 12:09:36 Result Notes Documentation Provider Name and Address Organization Details Recorded Time Mri, Lumbar Spine, W/o Contrast : [address] [address] Patient Name: HIMA AYOUB Patient : 1985 Patient Ordering Provider: SAAD CHRISTENSEN EXAM DATE: 07/18/2023 EXAM: MR LUMBAR W/O CONTRAST HISTORY: 37-year-old male with low back pain radiating to the left leg. COMPARISON: Radiograph of the same date FINDINGS: There is mild posterior listhesis of L3 on L4 and L4 on L5. There is no fracture. There is minimal anterior marginal osteophytic spurring. No pathologic lesion is identified in the lumbar spine. There are multiple Schmorl's nodes throughout the lumbar spine. The conus medullaris is normal in appearance at the T12-L1 level. T11-T12: There is a central disc protrusion or extrusion. There is mild central canal narrowing. There is no neural foraminal narrowing. T12-L1: This intervertebral disc is normal in appearance. L1-L2: There is mild endplate spurring. There is no central canal stenosis. There is no neural foraminal stenosis. L2-L3: There is mild endplate spurring and a minimal disc bulge. There is no central canal stenosis. There is no neural foraminal stenosis. L3-L4: There is a broad-based central disc protrusion and mild endplate spurring. There is moderate central canal stenosis. There is mild bilateral neural foraminal stenosis. L4-L5: There is a broad-based disc protrusion and endplate spurring extending into the neural foramina. There is mild facet arthropathy. There is mild central canal stenosis. There is severe left and moderate right neural foraminal stenosis. L5-S1: There is a large disc extrusion extending into the left lateral recess and left neural foramen. There is mild endplate spurring, a mild disc bulge and mild facet arthropathy. There is stenosis of the left lateral recess. There is no central canal stenosis. There is severe left and moderate right neural foraminal stenosis. The paraspinous musculature is symmetric and normal in signal. IMPRESSION: 1. There is a large disc extrusion in the left lateral recess and left neural foramen at L5-S1. There is stenosis of the left lateral recess at this level with severe left and moderate right neural foraminal narrowing. 2. There is a broad-based disc protrusion at L4-L5 with mild central canal narrowing, and severe left and moderate right neural foraminal narrowing. 3. There is a broad-based disc protrusion at L3-L4 with moderate central canal narrowing and mild bilateral neural foraminal narrowing. Interpreted By: Toney Brar MD [facility], [facility] [address] [place], [address], [facility] 07/19/2023 09:26:43 Xr, Lumbosacral Spine, 4 Or More View : [facility] [address] [place] [id number] Patient Name: HIMA AYOUB Patient : 1985 Patient Ordering Provider: SAAD CHRISTENSEN EXAM DATE: 07/18/2023 EXAM: XR LUMBAR SPINE AP/LAT/FLEX/EXT HISTORY: Severe low back pain COMPARISON: None. FINDINGS: There is mild levocurvature of the lumbar spine. There is minimal posterior listhesis of L3 on L4. This does not change with flexion or extension. There is mild anterior marginal spurring. There is mild facet arthropathy. No fracture is seen. IMPRESSION: 1. There are mild degenerative changes in the lumbar spine. Interpreted By: Toney Brar MD [facility], [facility] CONSULTANT [address] [place], [phone], [facility] 07/19/2023 09:26:42 Xr, Lumbosacral Spine, 4 Or More View : [facility] [address] [place] [address] Patient Name: HIMA AYOUB Patient : 1985 Patient Ordering Provider: SAAD CHRISTENSEN EXAM DATE: 09/19/2024 EXAM: XR LUMBAR SPINE AP/LAT/FLEX/EXT CLINICAL INFORMATION: Back pain. IMAGES PROVIDED: AP, lateral and coned-down views of the lumbar spine with additional lateral views in flexion and extension. COMPARISON: 07/18/2023 FINDINGS: Vertebral body heights are normal. There is some narrowing of several disc spaces and there is mild diffuse spurring present. No abnormality of alignment is seen. No instability is seen on flexion or extension. No radiographic evidence of injury is noted. IMPRESSION: Mild diffuse DDD. No instability. Interpreted By: Victoriano Messina MD [facility], [facility] CONSULTANT [address] [place] [address], [phone], [facility] 10/22/2024 12:09:36 Mri, Lumbar Spine, W/wo Contrast : [facility] [address] [place] [address] Patient Name: HIMA AYOUB Patient : 1985 Patient Ordering Provider: SAAD CHRISTENSEN EXAM DATE: 10/09/2024 EXAM: MR LUMBAR SPINE W/WO CONTRAST HISTORY: 39-year-old male with chronic low back pain radiating to the left. COMPARISON: MRI dated 07/18/2023 The patient did not require sedation for this exam. A baseline serum creatinine with eGFR was obtained prior to injection of contrast medium due to the patients risk factors for ALFREDA. Calculated eGFR at time of exam was GFR>90 FINDINGS: There is mild posterior listhesis of L3 on L4 and L4 on L5. There is no fracture. There is minimal to mild anterior marginal osteophytic spurring. No pathologic lesion is identified in the lumbar spine. There are multiple Schmorl's nodes throughout the lumbar spine. There are type II Modic changes at L4-L5 and L5-S1. The conus medullaris is normal in appearance at the T12-L1 level. T11-T12: There is a central disc extrusion extending superiorly. There is mild central canal narrowing. There is no neural foraminal narrowing. T12-L1: This intervertebral disc is normal in appearance. L1-L2: There is mild endplate spurring and a minimal disc bulge. There is no central canal stenosis. There is no neural foraminal stenosis. L2-L3: There is mild endplate spurring and a minimal disc bulge. There is no central canal stenosis. There is no neural foraminal stenosis. L3-L4: There is a broad-based central disc protrusion and mild endplate spurring. There is moderate central canal stenosis. There is mild bilateral neural foraminal stenosis. L4-L5: There is a broad-based disc protrusion and endplate spurring extending into the neural foramina. There is mild facet arthropathy. There is mild central canal stenosis. There is severe left and moderate/severe right neural foraminal stenosis. L5-S1: There is a possible left partial laminectomy. There is diffuse prominence of the intervertebral disc with focal extension in the left lateral recess. There is enhancement of the disc in the left lateral recess consistent with postsurgical granulation tissue. There is associated endplate spurring. There is stenosis of the left lateral recess. There is no central canal stenosis. There is severe left and moderate/severe right neural foraminal stenosis. After intravenous administration of 10 mL Gadavist ([facility] [address]-87), there is no abnormal enhancement in the lumbar spine. The paraspinous musculature is symmetric and normal in signal. IMPRESSION: 1. There is a prior partial discectomy at L5-S1. There is enhancement of the disc in the left lateral recess at L5-S1 consistent with postsurgical granulation tissue, and the overall shape of the disc is unchanged. No recurrent disc protrusion is identified. There is stenosis of the left lateral recess at this level with severe left and moderate/severe right neural foraminal narrowing. 2. There is a broad-based disc protrusion at L4-L5 with mild central canal narrowing, and severe left and moderate/severe right neural foraminal narrowing. 3. There is a broad-based disc protrusion at L3-L4 with moderate central canal narrowing and mild bilateral neural foraminal narrowing. Interpreted By: Toney Brar MD CHRISTENSEN APRN [address] [place], [address], [facility] 10/22/2024 12:09:36 Problems Name Problem SNOMED Code Status Onset Date Resolution Date Notes Provider Name and Address Organization Details Recorded Time Low back pain 781262148 Active 016 From Automated Load;Provi johana: Allie Ortiz atus: Active Not Available [employer] 7 06:47:49 Problem Notes None recorded. Procedures Surgical History Date Name Laterality Status Provider Name and Address Organization Details Recorded Time Back Surgery completed [facility] 11/06/2024 15:29:07 operative procedure on hand [facility] 11/06/2024 15:29:31 Imaging Results None recorded. Procedure Notes None recorded. Medical Equipment None Reported. Allergies Allergen ID Allergen Name Allergen Category Reaction Reaction Severity Criticality Documentation Date Start Date Code Code System Note Provider Name and Address Organization Details Recorded Time 418120 ampicilli n medicatio n Not available Not available Not available 11/06/2024 733 RxNorm [facility] 15:27:20 Medications Name Sig Start Date Stop Date Status Note LastModified by Organization Details LastModified Time cyclobenzap rine 10 mg tablet TAKE ONE TABLET BY MOUTH THREE TIMES DAILY MAY CAUSE DROWSINESS active Not Available Not Available N ot Available azithromyci n 250 mg tablet TAKE 2 TABLETS BY MOUTH ON DAY 1, THEN TAKE 1 TABLET DAILY ON DAYS 2-5 active Not Available Not Available No t Available hydrocodone 5 mg-acetamin ophen 325 mg tablet TAKE ONE TABLET BY MOUTH EVERY 6 HOURS FOR 7 DAYS MAY CAUSE DROWSINESS active Not taking Not Available Not Available Not Available prednisone 20 mg tablet TAKE THREE TABLETS BY MOUTH EVERY DAY FOR SIX DAYS --TAKE WITH FOOD-- active Not Available Not Available No t Available gabapentin 400 mg capsule TAKE ONE CAPSULE BY MOUTH TWICE DAILY MAY CAUSE DROWSINESS active Not taking Not Available Not Available Not Available hydrocodone 10 mg-acetamin ophen 325 mg tablet TAKE ONE TABLET BY MOUTH EVERY 6 HOURS MAY CAUSE DROWSINESS active Not taking Not Available Not Available Not Available sildenafil 25 mg tablet TAKE 1 TABLET BY MOUTH DAILY NEEDED FOR ERECTILE DYSFUNCTIO N active Not Available Not Available No t Available lisinopril 10 mg tablet TAKE ONE TABLET BY MOUTH EVERY DAY active Not Available Not Available No t Available gabapentin 300 mg capsule TAKE 1 CAPSULE BY MOUTH EVERY DAY AT BEDTIME NEEDED FOR NEUROPATHI C PAIN FOR 14 DAYS active Not taking Not Available Not Available Not Available diclofenac sodium 75 mg tablet,perfecto yed release TAKE ONE TABLET BY MOUTH TWICE DAILY NEEDED active Not Available Not Available No t Available methylpredn isolone 4 mg tablets in a dose pack TAKE ACCORDING TO PACKAGE INSTRUCTIO NS --TAKE WITH FOOD-- -- FINISH ALL MEDICINE -- active Not Available Not Available No t Available albuterol sulfate HFA 90 mcg/actuati on aerosol inhaler INHALE 1 PUFF BY MOUTH EVERY 4 HOURS NEEDED active Not Available Not Available No t Available Percocet 5 mg-325 mg tablet Every four hours active Duratio n: 10 days;Fr equency : q4h;Alt Frequen cy: prn;Med ication Descrip tion: acetami nophen- oxycodo ne; Dosage: 1; Route:o ral; refills :0; Quantit y:40 tablet Not Available Not Available Not Available naproxen 500 mg tablet TAKE ONE TABLET BY MOUTH EVERY TWELVE HOURS NEEDED --TAKE WITH FOOD-- active Not Available Not Available No t Available cyclobenzap rine 5 mg tablet TAKE ONE TABLET BY MOUTH THREE TIMES DAILY NEEDED FOR MUSCLE SPASMS MAY CAUSE DROWSINESS active Not Available Not Available N ot Available Vitals Date Recorded Body height Body mass index (BMI) Body weight Provider Name and Address Organization Details Last Updated DateTime 07/18/2023 177.8 cm 38.7 kg/m2 366911.94 g Crystalamada Torresfederica [facility] 07/18/2023 11:39:12 Date Recorded Body height Body mass index (BMI) Body weight Systolic And Diastolic Provider Name and Address Organization Details Last Updated DateTime 08/14/2023 177.8 cm 38.7 kg/m2 598474.94 g 142/82 mm[Hg] Subha Magdy [facility] 08/14/2023 15:14:31 Date Recorded Body weight Body mass index (BMI) Body height Oxygen saturation Oxygen saturation in Arterial blood by Pulse oximetry Heart rate Systolic And Diastolic Provider Name and Address Organization Details Last Updated DateTime 414975. 86 g 39.1 kg/m2 180.34 cm 97 % 97 % 90 /min 120/72 mm[Hg] Sea Bray [facility] 15:35:25 Social History Question Answer Notes LastModified by Organizat ion Details LastModified Time Tobacco Smoking Status Former Smoker Crystal De Anda [facility] 07/18/2023 11:39:33 What Was The Date Of Your Most Recent Tobacco Screening? 11/06/2024 [email or web address] Information not available 11/06/2024 Sex: Unknown Functional Status Question Answer Note LastModified by Organization D etails LastModified Time Are you currently employed? Yes Chet antunez Information not available 11/06/2024 Mental Status None recorded. Family History Relationship Description Onset Age of this Age Resolved Age Notes LastModified by Organization Details LastModified Time Unspecified Relation Hypertensive disorder [email or web address] Not available 11:39:26 Medical History Condition Response Heart Attack ([place]) Y Past Encounters Encounter ID Performer Location Encounter Start Date Encounter Closed Date Diagnosis/Indication Diagnosis SNOMED-CT Code Diagnosis ICD10 Code Diagnosis IMO Codes Diagnosis Note [id number] SAAD CHRISTENSEN APRN [facility] [address] [place] [address] 07/18/2023 11:00:32 07/19/2023 05:14:27 Lumbar radiculopathy 379681428 M54.16 [id number] ZEYAD ORTIZ MD SURGERY SCHEDULE [address] [place] [address] 07/25/2023 10:37:21 08/02/2023 13:15:45 [id number] ZEYAD ORTIZ MD [facility] [address] [place] [address] 08/14/2023 15:00:55 08/15/2023 05:05:19 Postoperative care 704666922 Z48.89 [id number] SAAD CHRISTENSEN APRN [facility] [place] [address] [place] [address] 09/19/2024 13:54:39 09/20/2024 04:58:08 Lumbar radiculopathy 237044488 M54.16 [id number] EVE WALTON MD PAIN MEDICINE [address] [place] [address] 11/06/2024 14:37:42 11/06/2024 16:25:29 Degeneration of lumbar intervertebral disc 14825544 M51.369 Displaceme nt of lumbar intervertebral disc 7069673832 M51.26 Lumbar radiculopathy 128 454857 M54.16 [id number] Health Concerns Section Related Observation LastModified by Organization Detai ls LastModified Time None Recorded Concern Status LastModified by Organization Details LastModified Time None Recorded Advance Directives Directive None Recorded Payers Insurance Date Sequence Insurance Name Policy Number Policy Baxter Covered Member ID Baxter Member ID Guarantor Name 09/18/2024 1 [facility] [id number] Hima Ayoub [id number] Hima Ayoub 11/04/2024 1 [facility] [id number] Pooja Ayoub [id number] Hima Ayoub 09/26/2024 PAYMENT PLAN Hima Ayoub 09/22/2024 PAYMENT PLAN Hima Ayoub Notes Date Note Type Note Provider Name and Address Organization Details Recorded Time 4 text/html Mr. Ayoub is a 37-year-old man who returns to the office after last being seen 01/25/2016 with reports of low back and left lower extremity pain that has been worse since Monday requiring 2 trips to the emergency department for further evaluation. SAAD CHRISTENSEN APRN [address] [place], [address], [facility] 07/18/2023 15:49:58 4 text/html ROS as noted in the HPI Mr. Ayoub is doing well after left L5-S1 discectomy performed on July 19, 2023. He reports good relief of his radicular leg pain. 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 ZEYAD ORTIZ MD [address] [place], [address], [facility] 08/14/2023 15:31:45 5 text/html Mr. Ayoub is a 38-year-old man who returns to the office after last being seen 08/14/2023 at that point in follow-up of his left L5-S1 hemilaminectomy, mesial facetectomy, foraminotomy, and discectomy completed by Dr. Ortiz on 07/19/2023 in a somewhat urgent fashion. He returns today reporting left leg pain that has been present for the last month with no known cause. SAAD CHRISTENSEN APRN [address] [place], [address], [facility] 09/19/2024 14:58:56 5 text/html Pain Management L-spine GISHReported by PatientHPIFor quality, patient reportssharp. For severity, patient reportsinterference with sleepandinterference with workbut reportsimproving,current pain level 0/10, andworst pain 10/10. For associated symptoms, patient reportsnumbness (lt foot stays numb since back surgery)but reportsno weakness,no bladder compromise, andno bowel compromise. For location, patient reportsbilateral le radiationandlbp(lt calf). For duration, patient reportsconstant(when it flares). For onset/timing, patient [id number]+ years. For context, patient reportslifting (too much heavy lifting). For alleviating factors, patient reportsmedication (flexeril)andchiropractic care. For aggravating factors, patient reportsflexion,carrying, andgoing from sit to stand. For adl (activities of daily living), patient reportsimprove with medication (flexeril). For prior imaging, patient reportsmri (10/09/24 @)(xray lumbar 09/19/24). For previous injections, patient reportsnone. For previous surgery, (left l5-s1 hemilaminectomy,foraminot cassie and discectomy 07/18/24 @[facility] by dr[facility] ortiz). For previous pt, (last visit 06/2023 [facility] pt). EVE WALTON MD [address] [place] [address], [phone], [facility] 11/06/2024 15:56:15
--- OUTSIDE RECORDS SUMMARY | 2024-12-16 07:55 | XMS_ITS | Referral Summary ---
Author Organization [employer] ([place], [place], [place], [place]) Address [address] [place] [address] Care Team Providers Care Anthropologist Name Role Phone [facility], Provider Not [...] Do you speak a language other than [place] at [facility]? 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
--- OUTSIDE RECORDS SUMMARY | 2024-12-16 07:55 | XMS_ITS | Continuity of Care Document ---
Author Organization [facility], PAIN MEDICINE [address] [place] [address] Assessment Encounter Date Assessment Date Assessment LastModified by Organization Details LastModified Time 11/06/2024 11/06/2024 This is a 39-year-old gentleman seen today for evaluation of low back and intermittent left leg pain. This can involve the left lateral ankle and calf. He has a sensation of a soft balled up under the toes. Pain is improved since undergoing left L5-S1 hemilaminectomy 07/19/[address] Bull but is still bothersome. He seems to [...] 2024 025 [facility], [address] [place] [address], [id number], 11/07/2024 15:30:07 Patient TargetsNo targets recorded. Patient InstructionsNo instructions recorded. Reason for Referral None Reported. Results Created Date Observation Date Name Description Value Unit Range Abnormal Flag Note LastModifiedBy Organization Detail LastModifiedTime 10/10/1910/09/2024 MRI, lumba r spine , w/wo contr ast [facility] [address] [place] [address] Patiheri t Name: HIMA stokes : 10[birth year] 85 Yobani stokes Orderi ng Provid er: SAAD DESEANSALIMA Sukhi EXAM DATE: 2024 EXAM: MR LUMBAR SPINE W/WO CONTRA ST HISTOR Y: 39-yea r-old male with chroni c low back pain radiat ing to the left. COMPAR JESUS: MRI dated 024 The patien t did not requir e sedati on for this exam. A baseli ne serum creati nine with eGFR was obtain ed prior to inject ion of contra st medium due to the patien ts risk factor s for ALFREDA. Calcul ated eGFR at time of exam was GFR>90 FINDIN GS: There is mild blender snuff ior listhe sis of L3 on L4 [...] strati on of [address] ([facility] [address]-0 2), there is no abnorm al [...] Sofi ervin MD on 10/10/19 8:54 AM [facility]iology [facility] [address] [place], [address], 10/22/2024 12:09:36 Result Notes None recorded. Problems Name Problem SNOMED Code Status Onset Date Resolution Date Notes Provider Name and Address Organization Details Recorded Time Low back pain 396884548 Active 016 From Automated Load;Provi johana: Yoel Bull;St atus: Active Not Available [facility] 7 06:47:49 Problem Notes None recorded. Procedures Surgical History Date Name Laterality Status Provider Name and Address Organization Details Recorded Time 5 Back Surgery completed [facility] 11/06/2024 15:29:07 operative procedure on hand completed [facility] 11/06/2024 15:29:31 Imaging Results None recorded. Procedure Notes None recorded. Medical Equipment None Reported. Allergies Allergen ID Allergen Name Allergen Category Reaction Reaction Severity Criticality Documentation Date Start Date Code Code System Note Provider Name and Address Organization Details Recorded Time 680691 ampicilli n medicatio n Not available Not available Not available 11/06/2024 733 RxNorm Sea Acevedoanthony [facility] 15:27:20 Medications Name Sig Start Date [...] N ot Available Vitals Date Recorded Body weight Body mass index (BMI) Body height Oxygen saturation Oxygen saturation in Arterial blood by Pulse oximetry Heart rate Systolic And Diastolic Provider Name and Address Organization Details Last Updated DateTime 489095. 86 g 39.1 kg/m2 180.34 cm 97 % 97 % 90 /min 120/72 mm[Hg] Sea Bray [facility] 15:35:25 Social History Question Answer Notes LastModified by Organizat ion Details LastModified Time Tobacco Smoking Status Former Smoker Crystalamada De Anda [facility] 07/18/2023 11:39:33 What Was The Date Of Your Most Recent Tobacco Screening? 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 Family History Relationship Description Onset Age of this Age Resolved Age Notes LastModified by Organization Details LastModified Time Unspecified Relation Hypertensive disorder [email or web address] Not available 11:39:26 Medical History Condition Response Heart Attack ([place]) Y Past Encounters Encounter ID Performer Location Encounter Start Date Encounter Closed Date Diagnosis/Indication Diagnosis SNOMED-CT Code Diagnosis ICD10 Code Diagnosis IMO Codes Diagnosis Note [id number] EVE WALTON MD PAIN MEDICINE [address] [place] [address] 11/06/2024 14:37:42 11/06/2024 16:25:29 Degeneration of lumbar intervertebral disc 35815288 M51.369 Displaceme nt of lumbar intervertebral disc 2025833903 M51.26 Lumbar radiculopathy 128 701869 M54.16 [id number] Health Concerns Section Related Observation LastModified by Organization Detai ls LastModified Time None Recorded Concern Status LastModified by Organization Details LastModified Time None Recorded Payers Encounter Date Sequence Insurance Name Policy Number Policy Baxter Covered Member ID Baxter Member ID Guarantor Name 11/06/2024 1 [facility] [id number] Pooja Santizo [id number] Hima Santizo Notes Date Note Type Note Provider Name and Address Organization Details Recorded Time 5 text/html Pain Management L-spine GISHReported by PatientHPIFor quality, patient reportssharp. For severity, patient reportsinterference with sleepandinterference with workbut reportsimproving,current pain level 0/10, andworst pain 10/10. For associated symptoms, patient reportsnumbness (lt foot stays numb since back surgery)but reportsno weakness,no bladder compromise, andno bowel compromise. For location, patient reportsbilateral le radiationandlbp(lt calf). For duration, patient reportsconstant(when it flares). For onset/timing, patient [id number]+ years. For context, patient reportslifting (too much heavy lifting). For alleviating factors, patient reportsmedication (flexeril)andchiropractic care. For aggravating factors, patient reportsflexion,carrying, andgoing from sit to stand. For adl (activities of daily living), patient reportsimprove with medication (flexeril). For prior imaging, patient reportsmri (10/09/24 @lc)(xray lumbar 09/19/24). For previous injections, patient reportsnone. For previous surgery, (left l5-s1 hemilaminectomy,foraminot cassie and discectomy 07/18/[address] [facility] by dr[facility] bull). For previous pt, (last visit 06/2023 [facility] pt). EVE WALTON MD [address] [place] [address], [phone], [facility] 11/06/2024 15:56:15
== END ==
LOC: SL 07:53
PROVIDERS: PCP Specialist; Visit Provider Specialist
DX: G47.30 Sleep apnea, unspecified (principal)
CPT/HCPCS: 95806